=== PATIENT | male | born 1975 | race Caucasian/White ===

== ENCOUNTER 2017-03-31 04:36 | Emergency (ER) | payer BC, SELFPAY ==
[~2017-03-31] VITALS: Ht 172.7 cm; Wt 89.6 kg
[2017-03-31] MEDS ORDERED: MORPHINE 2 MG/ML 1ML SYRINGE IV ONE (05:30)
[2017-03-31] MEDS ORDERED: ONDANSETRON 4MG/2ML VIAL (J2405) IV ONE (05:30)
[2017-03-31] MEDS ORDERED: dexameTHASONE 20 MG/5 ML VIAL (J1100) IV ONE (05:30)
[2017-03-31 05:41] LABS: BASO % 0.7 % (0.0-1.0); EOS # 0.2 K/mm3 (0.0-0.50); EOS % 3.1 % (0.0-3.0); LARGE UNSTAINED CELL # 0.1 K/mm3 (0.0-0.4); LARGE UNSTAINED CELL % 1.4 % (0.0-4.0); LYMPH % 15.2 % (24.0-44.0); MEAN CORPUSCULAR HEMOGLOBIN 33.4 pg (27.0-33.0); MEAN CORPUSCULAR HGB CONC 35.2 g/dl (32.0-36.5); MEAN CORPUSCULAR VOLUME 94.9 fl (80.0-96.0); MONO # 0.4 K/mm3 (0.0-0.8); MONO % 5.9 % (0.0-5.0); NEUTROPHILS # 4.9 K/mm3 (1.8-7.7); NEUTROPHILS % 73.8 % (36.0-66.0); PLATELET COUNT, AUTOMATED 215 k/mm3 (150-450); WHITE BLOOD COUNT 6.6 K/mm3 (4.0-10.0)
[2017-03-31 05:48] LABS: INR 0.97
[2017-03-31 05:55] LABS: ANION GAP 10 MEQ/L (8-16); BLOOD UREA NITROGEN 15 MG/DL (7-18); CALCIUM LEVEL 8.5 MG/DL (8.5-10.1); CARBON DIOXIDE LEVEL 27 MEQ/L (21-32); CHLORIDE LEVEL 106 MEQ/L (98-107); CREATININE FOR GFR 0.95 MG/DL (0.70-1.30); GLOMERULAR FILTRATION RATE > 60.0 (>60); GLUCOSE, FASTING 127 MG/DL (70-105); POTASSIUM SERUM 4.2 MEQ/L (3.5-5.1); SODIUM LEVEL 143 MEQ/L (136-145)
[2017-03-31 06:13] VITALS: BP 133/71
[2017-03-31] MEDS ORDERED: MORPHINE 4 MG/ML 1ML SYRINGE As Ordered ONE (06:14)
[2017-03-31] MEDS ORDERED: MORPHINE 4 MG/ML 1ML SYRINGE IV ONE (06:15)
--- NOTE | 2017-03-31 08:58 | REP ---
CT CERVICAL SPINE WITHOUT CONTRAST: HISTORY: Trauma. There is a comminuted fracture of the C2 vertebral body. There are fractures of the right C2 pedicle and left lamina. There is on subluxation. Disc bulges are present at the C2-3 through C4-5 levels. There is minimal narrowing of the spinal canal. The neural foramina are patent. The intervertebral discs and vertebral bodies are normal in height. IMPRESSION: Fractures of the C2 vertebral body, right pedicle and left lamina. Signed by Keaton Andres MD 03/31/2017 09:06 A
== END 2017-03-31 06:22 | disposition short-term general hospital (02) ==
LOC: M ED 04:36 → EDBD 04:36 → M ED 06:22
DX: S12.100A Unspecified displaced fracture of second cervical vertebra, initial encounter for closed fracture (principal); W10.8XXA Fall (on) (from) other stairs and steps, initial encounter; Y92.009 Unspecified place in unspecified non-institutional (private) residence as the place of occurrence of the external cause; Y93.89 Activity, other specified; Y99.8 Other external cause status
CPT/HCPCS: 70450; 72125; 80048; 85025; 85610; 85730; 96374; 96375; 96376; 99285; J1100; J2405